=== PATIENT | male | born 1960 | race Caucasian/White ===

== ENCOUNTER → 2017-12-17 | Outpatient (CLI) | payer OTHER | LOC: COL.RAD 13:10 | DX: S43.431A Superior glenoid labrum lesion of right shoulder, initial encounter (principal); S46.911A Strain of unspecified muscle, fascia and tendon at shoulder and upper arm level, right arm, initial encounter; M19.011 Primary osteoarthritis, right shoulder | CPT/HCPCS: A9585; Q9967 ==

== ENCOUNTER 2018-08-14 08:06 | Emergency (ER) | payer OTHER, BC ==
[~2018-08-14] VITALS: Ht 180.3 cm; Wt 109.1 kg
[2018-08-14 08:13] VITALS: TEMP 97.7
[2018-08-14] MEDS ORDERED: NEURONTIN600 MG/TAB PO (08:17)
[2018-08-14] MEDS ORDERED: CRESTOR 10MG10 MG (08:18)
[2018-08-14] MEDS ORDERED: COZAAR 50MG50 MG/TAB PO (08:18)
[2018-08-14] MEDS ORDERED: VOLTAREN 75 DR75 MG PO (08:19)
[2018-08-14] MEDS ORDERED: ROBAXIN 75750 MG/TAB PO (08:19)
[2018-08-14] MEDS ORDERED: ZANTAC 150MG T150 MG PO (08:20)
[2018-08-14] MEDS ORDERED: CYMBALTA 60MG60 MG PO (08:20)
[2018-08-14 08:55] VITALS: BP 112/68; PULSE 83
[2018-08-14] MEDS ORDERED: PERCOCET 325 MG1 TA2 PO (08:55)
== END 2018-08-14 09:57 | disposition home or self-care (01) ==
LOC: COL.ER 08:06
DX: S82.852A Displaced trimalleolar fracture of left lower leg, initial encounter for closed fracture (principal); I10 Essential (primary) hypertension; K21.9 Gastro-esophageal reflux disease without esophagitis; E78.5 Hyperlipidemia, unspecified; W01.0XXA Fall on same level from slipping, tripping and stumbling without subsequent striking against object, initial encounter; Y92.009 Unspecified place in unspecified non-institutional (private) residence as the place of occurrence of the external cause
CPT/HCPCS: J3010; Q4045

== ENCOUNTER 2023-07-19 07:30 | Emergency (ER) | payer SELFPAY ==
[~2023-07-19] VITALS: Ht 180.3 cm; Wt 127.3 kg
[~2023-07-19 07:30] MED LIST: COZAAR 50MG50 MG/TAB PO; CRESTOR 10MG10 MG; CYMBALTA 60MG60 MG PO; NEURONTIN600 MG/TAB PO; PERCOCET 325 MG1 TA2 PO; ROBAXIN 75750 MG/TAB PO; VOLTAREN 75 DR75 MG PO; ZANTAC 150MG T150 MG PO
[2023-07-19] MEDS ORDERED: CEPHALEXIN500 M1 PO (08:01)
[2023-07-19 08:22] VITALS: BP 147/78; PULSE 90; TEMP 98.2
== END 2023-07-19 08:17 | disposition home or self-care (01) ==
LOC: COL.ER 07:30
DX: S61.211A Laceration without foreign body of left index finger without damage to nail, initial encounter (principal); W26.8XXA Contact with other sharp object(s), not elsewhere classified, initial encounter; Y99.0 Civilian activity done for income or pay